=== PATIENT | female | born 1970 | race Caucasian/White ===

== ENCOUNTER 2016-11-02 13:33 | Emergency (ER) | payer MEDICAID ==
--- NOTE | ~2016-11-02 | CR7 ---
[facility] A Service of [facility] / [facility] RADIOLOGY TEXT RESULTS PATIENT: RODNEY LANDA LOCATION: SED : 72 UNIT #: [id number] AGE: [address]: Giorgi Franklin MD SEX: F ORDER DR: [id number] [address] [address] [id number] MR#: [id number] Acc #: [id number] NAME: RODNEY LANDA : 1970 SEX: F STUDY DATE/TIME: 11/02/2016 14:25 UNIT: SED ROOM: STUDY DESCRIPTION: CR Abdomen Single AP View Attending Physician: Giorgi Franklin M.D. Ordering Physician: Giorgi Franklin M.D. Primary Care Physician: Devon Fleming D.P.M. MEDICAL IMAGING REPORT This report is preliminary unless electronic signature is present. EXAM KUB HISTORY Abdominal pain over the past 3 days, worse today. TECHNIQUE Single view of the abdomen was obtained. FINDINGS Clips are seen in the right upper quadrant. The bowel gas pattern is normal with gas seen in both small and large bowel. No abnormally distended bowel loops are seen. Previous tubal ligation noted. No suspicious calcifications are seen over the expected course of either ureter. IMPRESSION Postoperative changes. Negative KUB. STAT * RESULT Dictated by... Sidhdartha Price M.D. THIS IS AN ELECTRONICALLY VERIFIED REPORT Siddhartha Price M.D. at 11/02/2016 4:54 PM HELENA/yue TD: 11/02/2016 15:05 JOB #: [id number] MEDICAL IMAGING REPORT [facility] A Service of [facility] RADIOLOGY TEXT RESULTS PATIENT: RODNEY LANDA LOCATION: SED : 72 UNIT #: [id number] AGE: [address]: Giorgi Franklin MD SEX: F ORDER DR: Page 1 of 1
[~2016-11-02 13:33] MED LIST: BACTRIM DS TABL1 TA1 PO; CELEXA PO; DESYREL150 M1 PO; DOXYCYCLINE PO; MEDROL4 MG/DOSE- PO; PERCOCET5/325 PO; PREDNISONE PO; PYRIDIUM100 MG PO; SEROQUEL PO; TRILEPTAL PO; VICODIN 5/1 TAB 5/50 PO; VOLTAREN75 MG PO; WELLBUTRIN PO
[2016-11-02 14:11] LABS: URINE SOURCE CLEAN CATCH
[2016-11-02 14:13] LABS: URINE APPEARANCE CLEAR; URINE BILIRUBIN NEG (NEG); URINE BLOOD NEG (NEG); URINE COLOR YELLOW; URINE GLUCOSE NEG (NORM); URINE KETONE NEG (NEG); URINE LEUKOCYTE ESTERASE TRACE (NEG); URINE NITRATE NEG (NEG); URINE PROTEIN NEG (NEG); URINE SPECIFIC GRAVITY 1.015 (1.003-1.035); URINE UROBILINOGEN 0.2 MG/DL (NORM)
[2016-11-02 14:14] LABS: MICRO INDICATED? YES
[2016-11-02 14:15] LABS: CULTURE INDICATED? NO; URINE BACTERIA NEG (NEG); URINE RBC 0-2 /[HPF] (0-2); URINE SQUAMOUS EPITHELIAL CELL OCCAS /[HPF]; URINE WBC 0-2 /[HPF] (0-5)
[2016-11-02 14:16] LABS: URINE GRANULAR CAST 0-2 /[HPF]; URINE HYALINE CAST 0-2 /[HPF]
== END 2016-11-02 15:27 | disposition home or self-care (01) ==
LOC: SED 13:33
PROVIDERS: Emergency Medicine
DX: S39.012A Strain of muscle, fascia and tendon of lower back, initial encounter (principal); R10.9 Unspecified abdominal pain; F17.200 Nicotine dependence, unspecified, uncomplicated; Z86.19 Personal history of other infectious and parasitic diseases; X58.XXXA Exposure to other specified factors, initial encounter
CPT/HCPCS: 36415; 74000; 81003; 96374; 96375; 99284; J1885; J2765

== ENCOUNTER 2016-12-22 13:27 | Emergency (ER) | payer MEDICAID | END 2016-12-22 16:19 | disposition home or self-care (01) | LOC: SED 13:27 | DX: J02.0 Streptococcal pharyngitis (principal); F17.210 Nicotine dependence, cigarettes, uncomplicated; Z98.51 Tubal ligation status | CPT/HCPCS: 87880; 96372; 99283; J0561 ==